=== PATIENT | male | born 1955 | race Caucasian/White ===

== ENCOUNTER 2018-11-30 11:37 | Emergency (ER) | payer BC, OTHER ==
[2018-11-30 11:44] VITALS: BP 132/78
[2018-11-30] MEDS ORDERED: DIPH/PERTUSS(ACELL)/TETANUS VAC/PF 0.5 ML SYR (>=10YO) IM ONE (12:54)
--- NOTE | 2018-11-30 12:59 | ER Document Report ---
ED General - General Chief Complaint: Puncture Wound Stated Complaint: HAND PAIN Time Seen by Provider: 11/30/18 12:09 Primary Care Provider: THERESE DOMÍNGUEZ MD [Primary Care Provider] - Follow up as needed - HPI Notes: Patient is a 63-year-old male who presents emergency department for evaluation of a wrist wound. He was working on a window at home. Shattered, caused a puncture wound in the dorsum of his right wrist. He states it was bleeding with a "steady stream" of dark blood. He applied pressure and went to the urgent care. Upon seeing the level bleeding they sent him here. Patient denies any numbness or tingling. He is not on blood thinners. He denies any weakness. He is unsure of his last tetanus shot. - Related Data Allergies/Adverse Reactions: No Known Allergies Allergy (Unverified 11/30/18 11:38) Past Medical History - Social History Smoking Status: Former Smoker Family History: Reviewed & Not Pertinent Patient has suicidal ideation: No Patient has homicidal ideation: No - Past Medical History Cardiac Medical History: Reports: Hx Hypertension Renal/ Medical History: Denies: Hx Peritoneal Dialysis Musculoskeletal Medical History: Reports Hx Gout Past Surgical History: Reports: Hx Orthopedic Surgery Review of Systems - Review of Systems Constitutional: No symptoms reported EENT: No symptoms reported Cardiovascular: No symptoms reported Respiratory: No symptoms reported Gastrointestinal: No symptoms reported Genitourinary: No symptoms reported Musculoskeletal: No symptoms reported Skin: See HPI Neurological/Psychological: No symptoms reported Physical Exam - Vital signs Vitals: Temp Pulse Resp BP Pulse Ox 98.2 F 79 16 132/78 H 97 11/30/18 11:42 11/30/18 11:42 11/30/18 11:42 11/30/18 11:42 11/30/18 11:42 - Notes Notes: This is a very pleasant 63-year-old male who appears his stated age in no acute distress. Physical exam is limited the area of chief complaint. Patient has a 1 cm puncture type wound noted to the dorsum of the right wrist, right in the middle. He has full range of motion of the wrist, thumb, all fingers. Capillary refill is brisk, sensation is intact, radial pulses 2+, ulnar +1. Course - Re-evaluation Re-evalutation: 11/30/18 12:58 Patient presents emergency department for evaluation of a puncture wound was bleeding heavily. It sounds like was a significant venous bleed but the patient's vitals are stable. He has no dizziness. His tetanus is updated, sent for x-ray to evaluate for possible foreign body. Assuming no foreign body is identified, wound will be Steri-Stripped and he is to follow-up with primary care this week. 11/30/18 14:02 No foreign body in wound. Wound Steri-Stripped, patient given instructions on pressure to stop bleeding, and discharge. - Vital Signs Vital signs: Temp Pulse Resp BP Pulse Ox 98.2 F 79 16 132/78 H 97 11/30/18 11:42 11/30/18 11:42 11/30/18 11:42 11/30/18 11:42 11/30/18 11:42 - Diagnostic Test Radiology reviewed: Reports reviewed Radiology results interpreted by me: 11/30/18 14:02 Wrist X-Ray 11/30/18 12:55 IMPRESSION: NEGATIVE STUDY OF THE RIGHT WRIST. NO RADIOGRAPHIC EVIDENCE OF ACUTE INJURY. Discharge - Discharge Clinical Impression: Laceration of right wrist Condition: Stable Disposition: HOME, SELF-CARE Instructions: Soap Cleansing ([facility]), Tetanus Immunization Given ([facility]), Antibiotic Ointment Protection ([facility]) Additional Instructions: Keep wound clean with soap and water. Avoid being aggressive with the wound to restart bleeding. Follow-up with your doctor this week. If bleeding begins again apply pressure. If you are unable to get the bleeding to stop, return to the ED for further evaluation. Referrals: THERESE DOMÍNGUEZ MD [Primary Care Provider] - Follow up as needed
--- NOTE | 2018-11-30 13:30 | RADIOLOGY REPORT (SQ) ---
EXAM DESCRIPTION: WRIST RIGHT 2 VIEWS COMPLETED DATE/TIME: 11/30/2018 1:14 pm REASON FOR STUDY: puncture wound from glass, dorsum of wrist COMPARISON: None. NUMBER OF VIEWS: Two views. TECHNIQUE: AP and lateral radiographic images acquired of the right wrist. LIMITATIONS: None. FINDINGS: MINERALIZATION: Normal. BONES: No acute fracture or dislocation. No worrisome bone lesions. Normal alignment. SOFT TISSUES: No soft tissue swelling. No foreign body. OTHER: No other significant finding. IMPRESSION: NEGATIVE STUDY OF THE RIGHT WRIST. NO RADIOGRAPHIC EVIDENCE OF ACUTE INJURY. TECHNICAL DOCUMENTATION: JOB ID: [id number] [employer]- All Rights Reserved Reading location - IP/workstation name: [email or web address]
== END 2018-11-30 14:30 | disposition home or self-care (01) ==
LOC: ER 11:37
DX: S61.511A Laceration without foreign body of right wrist, initial encounter (principal); W25.XXXA Contact with sharp glass, initial encounter; Y93.89 Activity, other specified; Y92.009 Unspecified place in unspecified non-institutional (private) residence as the place of occurrence of the external cause; I10 Essential (primary) hypertension; Z87.891 Personal history of nicotine dependence; Z23 Encounter for immunization
CPT/HCPCS: 90715; 99283